=== PATIENT | female | born 1985 | race Caucasian/White ===

== ENCOUNTER 2020-01-25 14:54 | Emergency (ER) | payer OTHER ==
[~2020-01-25] VITALS: Ht 157.5 cm; Wt 73.9 kg
--- NOTE | 2020-01-25 14:54 | NUR ---
PT BIBA BLS TO ER BED 02. RN EVALALUTATING AT BEDSIDE.
[2020-01-25 15:02] VITALS: BP 136/81
[2020-01-25] MEDS ORDERED: IBUPROFEN 400 MG TAB PO ONE (15:20)
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
--- NOTE | 2020-01-25 15:31 | NUR ---
DR. RANGEL EVALUATING PT AT BEDSIDE
== END 2020-01-25 16:37 | disposition home or self-care (01) ==
LOC: MED 14:54
DX: S60.221A Contusion of right hand, initial encounter (principal); S50.11XA Contusion of right forearm, initial encounter; R03.0 Elevated blood-pressure reading, without diagnosis of hypertension; V49.88XA Car occupant (driver) (passenger) injured in other specified transport accidents, initial encounter; Y93.89 Activity, other specified; Y92.89 Other specified places as the place of occurrence of the external cause; Y99.8 Other external cause status
CPT/HCPCS: 73090; 73130; 99284